=== PATIENT | female | born 1975 | race Caucasian/White ===

== ENCOUNTER → 2020-01-26 09:40 | Outpatient (BNVA) | payer OTHER, MEDICAID, SELFPAY | PROVIDERS: Visit Provider Obstetrics & Gynecology | DX: Z11.3 Encounter for screening for infections with a predominantly sexual mode of transmission (principal); Z12.4 Encounter for screening for malignant neoplasm of cervix | CPT/HCPCS: 87491; 87591; 88175 ==

== ENCOUNTER 2021-01-17 14:57 | Outpatient (CLI) | payer MEDICARE, MEDICAID, SELFPAY ==
--- NOTE | 2021-01-17 | USCV_ITS ---
Roxana Nichols Age: 45 Gender: F : 1975 Exam Date: 01/17/2021 15:16 Ordering Phys: Marie Arrington DO Technologist: Arleth Richards [place] [facility] [place]: BILATERAL LEG EDEMA HISTORY: Lower extremity edema. PROCEDURES: Venous duplex imaging was performed in bilateral lower extremities. The following venous structures were evaluated: common femoral vein, profunda vein, proximal portion of the greater saphenous vein, superficial femoral vein, and the popliteal vein. In addition, the posterior tibial and peroneal trunk were evaluated. FINDINGS: Normal 2-D Doppler and augmentation and compressibility throughout the lower extremity venous structures. Additional imaging through the proximal calf veins also reveals no thrombus. Limited evaluation of the greater saphenous vein is patent with no thrombus. Complex cystic mass with low level echos and no vascularity measuring 5.15x4.06x1.30cm in the left popliteal fossa. CONCLUSIONS No evidence of right lower extremity DVT. No evidence of left lower extremity DVT. Complex popliteal cyst left popliteal fossa 5.1 x 4.0 x 1.3cm Jono Miller MD (Electronically Signed) Final Date: 17 January 2021 16:00 S
== END 2021-01-17 14:58 | disposition home or self-care (01) ==
LOC: RAD 15:04
PROVIDERS: PCP Internal Medicine; Visit Provider Internal Medicine
DX: R60.0 Localized edema (principal); M71.22 Synovial cyst of popliteal space [Baker], left knee
CPT/HCPCS: 93970